=== PATIENT | female | born 1985 | race Caucasian/White ===

== ENCOUNTER 2020-05-05 06:38 | Day surgery (SDC) | payer OTHER ==
[2020-05-05 10:58] VITALS: BMI 30.2
[2020-05-05] MEDS ORDERED: PROPOFOL 20 ML ONE (13:13)
[2020-05-05] MEDS ORDERED: MIDAZOLAM HCL 2 MG/2 ML SINGLE DOSE VIAL ONE (13:13)
[2020-05-05] MEDS ORDERED: KETOROLAC TROMETHAMINE 30 MG/1 ML VIAL ONE (13:36)
[2020-05-05] MEDS ORDERED: ONDANSETRON 4 MG/2 ML VIAL ONE (13:36)
[2020-05-05] MEDS ORDERED: DEXAMETHASONE SOD PHOSPHATE 4 MG/1 ML VIAL ONE (13:36)
[2020-05-05] MEDS ORDERED: OXYTOCIN 10 UNITS/ML VIAL ONE (13:38)
[2020-05-05] MEDS ORDERED: ONDANSETRON 4 MG/2 ML VIAL IVPUSH PRN ×2 (13:42→13:53)
[2020-05-05] MEDS ORDERED: IBUPROFEN 600 MG TABLET (FP) PO PRN (13:42)
[2020-05-05] MEDS ORDERED: oxyCODONE HCL 5 MG TABLET PO PRN (13:42)
[2020-05-05] MEDS ORDERED: IBUPROFEN 800 MG/8 ML IJ IVPB PRN (13:42)
[2020-05-05] MEDS ORDERED: ELECTROLYTE-148 SOLN 1,000 ML IV SCH (13:45)
[2020-05-05] MEDS ORDERED: PROMETHAZINE HCL 25 MG/1 ML VIAL IVPUSH PRN (13:53)
[2020-05-05] MEDS ORDERED: LACTATED RINGERS SOLUTION 1,000 ML IV SCH (14:00)
[2020-05-05 16:06] VITALS: TEMP 97.5
[2020-05-05 18:11] VITALS: BP 100/47; PULSE 82
== END 2020-05-05 18:11 | disposition home or self-care (01) ==
LOC: JASU-SURG 06:38
PROVIDERS: ATTEND Obstetrics & Gynecology
PROC: 10D17ZZ Extraction of Products of Conception, Retained, Via Natural or Artificial Opening (ICD-10-PCS; principal; 2020-05-05 14:00)
DX: O02.1 Missed abortion (principal)
CPT/HCPCS: 88305-TC; 94760